=== PATIENT | female | born 1980 | race Caucasian/White ===

== ENCOUNTER 2018-01-26 17:00 | Inpatient (IN) | payer MEDICAID ==
[2018-01-26] MEDS ORDERED: OXYTOCIN 30 UNITS/LR 500 ML IV ×2 (18:00)
[2018-01-26] MEDS ORDERED: MISOPROSTOL 200 MCG TAB PR (18:00)
[2018-01-26] MEDS ORDERED: CARBOPROST 250 MCG INJ IM (18:00)
[2018-01-26] MEDS ORDERED: METHYLERGONOVINE 0.2 MG INJ IM (18:00)
[2018-01-26] MEDS ORDERED: IBUPROFEN 600 MG TAB PO (18:00)
[2018-01-26] MEDS ORDERED: BUTORPHANOL 2 MG INJ IV (18:00)
[2018-01-26] MEDS ORDERED: LIDOCAINE 1% (MPF) 30 ML INJ INJ (18:00)
[2018-01-26] MEDS: LACTATED RINGER'S 1,000 ML IV (18:20)
[2018-01-26] MEDS: DINOPROSTONE 10 MG VAG SUPP VAG (18:39)
[2018-01-26 19:02] LABS: ADD MAN DIFF? NO
[2018-01-26 19:04] LABS: WHITE BLOOD COUNT 9.9 10^3/ul (4.8-10.8)
[2018-01-26 19:04] LABS: BASOPHILS % 0.4 % (0.0-2.0); EOSINOPHILS # 0.1 10^3/ul (0.0-0.5); HEMATOCRIT 34.4 % (37.0-47.0); HEMOGLOBIN 11.6 g/dl (12.0-16.0); LYMPHOCYTES # 1.9 10^3/ul (0.8-2.9); LYMPHOCYTES % 19.3 % (15.0-51.0); MEAN CORPUSCULAR HEMOGLOBIN 28.9 pg (29.0-33.0); MEAN CORPUSCULAR HGB CONC 33.7 g/dl (32.0-37.0); MEAN CORPUSCULAR VOLUME 85.8 fl (82.0-101.0); MEAN PLATELET VOLUME 10.7 fl (7.4-10.4); MONOCYTE # 0.6 10^3/ul (0.3-0.9); NEUTROPHIL # 7.2 10^3/ul (1.6-7.5); NEUTROPHILS % 72.3 % (39.0-77.0); NUCLEATED RED BLOOD CELLS% 0.2 /100WBC (0.0-0.0); PLATELET COUNT 261 10^3/UL (140-415); RED BLOOD COUNT 4.01 10^6/ul (4.20-5.40); RED CELL DISTRIBUTION WIDTH 14.2 % (11.5-14.5)
[2018-01-26 19:24] LABS: INR 0.91; PROTIME 12.3 Sec (11.9-14.9)
[2018-01-26 19:25] LABS: PARTIAL THROMBOPLASTIN TIME 27.6 Sec (25.0-35.0)
[2018-01-26 20:21] LABS: HEPATITIS B SURFACE ANTIGEN NEGATIVE (NEGATIVE)
[2018-01-27] MEDS: LACTATED RINGER'S 1,000 ML IV ×3 (02:15→10:00)
[2018-01-27] MEDS ORDERED: FENTAnyl 2MCG/ML-ROPIV 0.2% 100 ML (08:39)
[2018-01-27] MEDS ORDERED: FENTAnyl 2MCG/ML-ROPIV 0.2% 100 ML BAG EPI (09:30)
[2018-01-27] MEDS ORDERED: DIPHENHYDRAMINE 50 MG INJ IV (09:30)
[2018-01-27] MEDS ORDERED: NALOXONE (0.4 MG/ML) INJ IV (09:30)
[2018-01-27] MEDS: OXYTOCIN 30 UNITS/LR 500 ML IV ×3 (09:55→21:11)
[2018-01-27] MEDS: ONDANSETRON 4 MG INJ IV (13:46)
[2018-01-27 16:06] LABS: RAPID PLASMA REAGIN NONREACTIVE (NR)
[2018-01-27] MEDS ORDERED: LACTATED RINGER'S 1,000 ML IV* (17:42)
[2018-01-27] MEDS ORDERED: ACETAMINOPHEN 325 MG TAB PO (18:00)
[2018-01-27] MEDS ORDERED: SENNA/DOCUSATE NA (8.6MG/50MG) TAB PO (18:00)
[2018-01-27] MEDS ORDERED: MAGNESIUM HYDROXIDE 30ML CUP PO (18:00)
[2018-01-27] MEDS ORDERED: CARBOPROST 250 MCG INJ IM (18:00)
[2018-01-27] MEDS ORDERED: DIPHENHYDRAMINE 25 MG CAP PO (18:00)
[2018-01-27] MEDS ORDERED: HYDROCODONE/APAP (5/325) TAB PO (18:00)
[2018-01-27] MEDS ORDERED: OXYTOCIN 30 UNITS/LR 500 ML IV (18:00)
[2018-01-27] MEDS ORDERED: ZOLPIDEM 5 MG TAB PO (18:00)
[2018-01-27] MEDS ORDERED: MISOPROSTOL 200 MCG TAB PR (18:00)
[2018-01-27] MEDS ORDERED: METHYLERGONOVINE 0.2 MG INJ IM (18:00)
[2018-01-27] MEDS: IBUPROFEN 800 MG TAB PO ×2 (18:43→23:43)
[2018-01-27] MEDS: LANOLIN 7 GM TUBE TOP (18:43)
[2018-01-27] MEDS: BENZOCAINE 20% 56 ML SPRAY TOP (18:44)
[2018-01-27] MEDS: WITCH HAZEL/GLYCERIN PAD PR (18:44)
[2018-01-28] MEDS: IBUPROFEN 800 MG TAB PO ×4 (05:35→23:49)
[2018-01-28 08:11] LABS: ADD MAN DIFF? NO
[2018-01-28 08:15] LABS: BASOPHILS % 0.3 % (0.0-2.0); EOSINOPHILS # 0.1 10^3/ul (0.0-0.5); EOSINOPHILS % 0.9 % (0.0-7.0); HEMATOCRIT 32.9 % (37.0-47.0); HEMOGLOBIN 10.6 g/dl (12.0-16.0); LYMPHOCYTES # 1.5 10^3/ul (0.8-2.9); LYMPHOCYTES % 14.2 % (15.0-51.0); MEAN CORPUSCULAR HEMOGLOBIN 28.3 pg (29.0-33.0); MEAN CORPUSCULAR HGB CONC 32.2 g/dl (32.0-37.0); MEAN PLATELET VOLUME 10.5 fl (7.4-10.4); MONOCYTE # 0.6 10^3/ul (0.3-0.9); MONOCYTES % 5.7 % (0.0-11.0); NEUTROPHIL # 8.1 10^3/ul (1.6-7.5); NEUTROPHILS % 78.3 % (39.0-77.0); PLATELET COUNT 213 10^3/UL (140-415); RED BLOOD COUNT 3.74 10^6/ul (4.20-5.40); RED CELL DISTRIBUTION WIDTH 14.3 % (11.5-14.5)
[2018-01-28 08:15] LABS: WHITE BLOOD COUNT 10.3 10^3/ul (4.8-10.8)
[2018-01-29] MEDS: IBUPROFEN 800 MG TAB PO ×2 (05:17→11:48)
[2018-01-29] MEDS: MEASLES,MUMPS,RUBELLA VACCINE INJ SC* (09:00)
[2018-01-29] MEDS: VARICELLA VACCINE LIVE/PF 1,350 UNIT/0.5 ML ML SC* (09:00)
[2018-01-29] MEDS: DIPHTH/TET/ACEL PERTUSS (ADULT) 0.5 ML VIAL IM* (11:50)
== END 2018-01-29 16:20 | disposition home or self-care (01) | DRG 775 ==
LOC: L-D 17:00 → PP1 01-27 18:07
PROVIDERS: Obstetrics & Gynecology
PROC: 4A1HXCZ Monitoring of Products of Conception, Cardiac Rate, External Approach (ICD-10-PCS; 2018-01-26 17:00)
PROC: 3E0P7GC Introduction of Other Therapeutic Substance into Female Reproductive, Via Natural or Artificial Opening (ICD-10-PCS; 2018-01-26 17:00)
DX: O99.62 Diseases of the digestive system complicating childbirth (principal); K81.9 Cholecystitis, unspecified; O70.0 First degree perineal laceration during delivery; Z3A.38 38 weeks gestation of pregnancy; Z37.0 Single live birth; Z23 Encounter for immunization
CPT/HCPCS: 62319; 76815; 76818; 85025; 85610; 85730; 86592; 86850; 86900; 86901; 87340; 90715